=== PATIENT | male | born 1940 | race African-American/Black ===

== ENCOUNTER 2016-05-29 10:43 | Inpatient (IN) ==
[2016-05-29] MEDS ORDERED: TYLENOL PO PRN (12:12)
[2016-05-29] MEDS ORDERED: ZOFRAN IV PRN (12:12)
--- NOTE | 2016-05-29 13:17 | Diag Imaging Result Document ---
PROCEDURE NAME: CHEST-2 VIEWS - 05/29/2016 CHEST X-RAY, 2 VIEWS: COMPARISON: 05/24/2016. FINDINGS: Stable borderline cardiomegaly. No focal infiltrates, pneumothorax, or pleural effusion. IMPRESSION: Borderline heart size. No acute disease or change from prior.
[2016-05-29 14:12] LABS: HEMOGLOBIN 14.4 g/dL (14.0-18.0); MCHC 34.4 g/dL (33-37); MCV 97.2 FL (81-99)
[2016-05-29] MEDS: LASIX IV SCH (14:14)
[2016-05-29] MEDS: LOVENOX SUBQ SCH (14:14)
[2016-05-29 14:20] LABS: HEMATOCRIT 41.8 % (42.0-52.0); MCH 33.5 PG (27-31); MPV 11.2 FL (7.4-10.4); RBC 4.3 XMIL (4.7-6.1)
[2016-05-29 14:51] LABS: AGAP 13; BUN 25 mg/dL (8-22); CALCIUM 9.4 mg/dL (8.8-10.2); CHLORIDE 96 mmol/L (98-107); COSMO 277; POTASSIUM 4.3 mmol/L (3.5-5.1); SODIUM 136 mmol/L (136-145); TCO2 27 mmol/L (25-35)
--- NOTE | 2016-05-29 19:17 | ECHO REPORT ---
ORDER DATE: 05/29/2016 DIAGNOSIS: Congestive heart failure. MEASUREMENTS: Left ventricular end-diastolic diameter 3.7, end-systolic diameter 3.2. posterior wall thickness 1.9, septal thickness 2.3, left atrium 4.2, aortic root 3.0. SUMMARY: 1. Adequate quality acoustic windows. 2. Trileaflet aortic valve is sclerotic but opens adequately on 2-dimensional images. Mitral and tricuspid valves are without structural abnormality with mild to moderate mitral regurgitation and moderate tricuspid regurgitation. Pulmonic valve without structural abnormality. Estimated systolic PA pressure by Doppler is 45 mmHg. The aortic root is normal size. 3. Normal left ventricular chamber size with severe concentric left hypertrophy demonstrated. Estimated left ejection fraction approximately 30% in the setting of global hypokinesis. Left atrium is mildly enlarged. Right atrium is mildly enlarged. Right ventricle is of normal size with grossly preserved right ventricular systolic performance. 4. No pericardial effusion. 5. Appearance of inferior vena cava suggests elevated central venous pressure. CONCLUSIONS: 1. Aortic valve sclerosis without stenosis. 2. Mild to moderate mitral regurgitation. 3. Moderate tricuspid regurgitation with [id number] pulmonary hypertension suggested by Doppler. 4. Severe concentric left hypertrophy with estimated left ejection fraction 30%. 5. Biatrial enlargement. 6. Elevated central venous pressure suggested.
[2016-05-29] MEDS: ASPIRIN EC PO SCH (20:58)
[2016-05-29] MEDS: PRAVACHOL PO SCH (20:59)
[2016-05-29] MEDS ORDERED: RANEXA PO SCH (21:00)
[2016-05-30] MEDS: LASIX IV SCH (01:26)
[2016-05-30 08:06] LABS: AGAP 13; BUN 27 mg/dL (8-22); CALCIUM 8.9 mg/dL (8.8-10.2); CHLORIDE 93 mmol/L (98-107); COSMO 275; POTASSIUM 4.2 mmol/L (3.5-5.1); SODIUM 135 mmol/L (136-145); TCO2 29 mmol/L (25-35)
--- NOTE | 2016-05-30 08:06 | PROGRESS NOTE ---
DATE: 05/30/2016 SUBJECTIVE: Mr. Joe Murphy was admitted to [facility] on 05/29/2016 with acute-on- chronic congestive heart failure secondary to diastolic dysfunction. His most recent echocardiogram in 2015 demonstrated normal LV function with an EF of 50% to 55% with diastolic dysfunction. We placed him on a salt and fluid restricted diet and have aggressively diuresed him with Lasix. This morning, he reports that he is breathing more comfortably. He denies any PND or orthopnea. His O2 saturations have ranged from 94-98% on room air. He put out over 1600 mL of urine. We obtained an echo on admission. The echo from 05/29/2016 demonstrated normal left ventricular size with severe concentric left hypertrophy with an estimated left ejection fraction of 30% in the setting of global hypokinesis. He had preserved right ventricular systolic dysfunction. He also had kwoe-[id number] mitral regurgitation, moderate tricuspid regurgitation and vgaa-ew-[id number] pulmonary hypertension. He has had previous pulmonary function tests which demonstrated mild COPD type changes with significant improvement with inhalers. OBJECTIVE: Vital Signs: He is afebrile. Temperature is pulse 78, BP 109/68. CV: Regular rate and rhythm. Lungs: Faint crackles in the bases with scattered rhonchi. Abdomen: Soft, nontender, with active bowel sounds. Extremities: Trace ankle edema. ASSESSMENT AND PLAN: 1. Qillq-ws-uwptjts congestive heart failure secondary to systolic dysfunction. His echo shows global hypokinesis with an ejection fraction of 30%. I am going to reduce the dosage of Ranexa to 500 mg b.i.d. I will begin Coreg 3.125 mg b.i.d. and add losartan 25 mg daily. As he has had good urine output, I will reduce the Lasix to 40 mg daily. I will consult Dr. Gallegos to see the patient in consultation. Given the severe global hypokinesis with an ejection fraction of 30%, he is certainly at increased risk for 80 arrhythmias and would probably benefit from a defibrillator. He will also probably need to be on Coumadin. 2. Chronic chronic obstructive pulmonary disease. We will continue Dulera 100/5 two puffs b.i.d. and I am going to add DuoNeb nebulizer treatments q.6 hours. 3. Ischemic heart disease. He has chronic stable angina. His initial cardiac enzymes were normal. We will monitor him medically.
[2016-05-30] MEDS: DUONEB (A & A) INH SCH ×4 (08:45→21:37)
[2016-05-30] MEDS ORDERED: TOPROL XL PO SCH (09:00)
[2016-05-30] MEDS: RANEXA PO SCH ×2 (09:41→09:49)
[2016-05-30] MEDS: CYMBALTA PO SCH (09:41)
[2016-05-30] MEDS: ZYLOPRIM PO SCH (09:42)
[2016-05-30] MEDS: VICON-C PO SCH (09:42)
[2016-05-30] MEDS: COZAAR PO SCH (09:46)
[2016-05-30] MEDS: COREG PO SCH ×2 (09:47→21:25)
[2016-05-30] MEDS: LASIX PO SCH (09:51)
--- NOTE | 2016-05-30 11:22 | EKG Report ---
Test Performed on : 05/30/2016 10:35:04 AM Test Reason : CAD Blood Pressure : / mmHG Vent. Rate : 074 BPM Atrial Rate : 074 BPM P-R Int : 218 ms QRS Dur : 148 ms QT Int : 470 ms P-R-T Axes : 061 -77 083 degrees QTc Int : 521 ms Sinus rhythm. with 1st degree AV block. Left axis deviation Left bundle branch block Abnormal ECG When compared with ECG of 24-MAY-2016 02:14, (Unconfirmed) No significant change was found Confirmed by Paulette NEWTON, Dago Pelletier ([id number]) on 05/30/2016 5:19:30 PM
--- NOTE | 2016-05-30 13:12 | CONSULTATION ---
DATE OF CONSULTATION: 05/30/2016 IMPRESSION: 1. Acute on chronic congestive heart failure with echocardiography suggesting systolic heart failure. 2. Chronic obstructive pulmonary disease with exacerbation. 3. Atherosclerotic coronary disease with history of previous coronary angioplasty/stent procedures. Coronary angiography in 2013 reported significant atherosclerosis in distal left anterior descending coronary artery. Patent stent in the left circumflex coronary, and occluded stent in proximal right coronary. Left ventricle ejection fraction at that time 60%. No significant mitral regurgitation. 4. Hypertension. 5. Hyperlipidemia. RECOMMENDATIONS: 1. Diurese. 2. Treat for COPD exacerbation as you are doing. 3. I will review echocardiography and as patient improves will give consider to possible pursuit of re-evaluation with cardiac catheterization and selective coronary angiography. HISTORY: This 75-year-old male with past history of ischemic heart disease, COPD, hypertension, hyperlipidemia was admitted for further evaluation of progressive dyspnea symptoms and cough. Echocardiography was abnormal showing decline in left ventricular systolic function as well as development of mitral regurgitation. Cardiology consult was requested. He relates having some tendency for chronic exertional shortness of breath. However over the last week or so his exertional shortness of breath symptoms have gotten considerably worse and most recently has gotten to the point where and just make it to the bathroom with effort limiting dyspnea. There has been no orthopnea. He has had cough. He also describes feeling weak. There has been no angina. His cough is minimally productive. PAST MEDICAL HISTORY: 1. Atherosclerotic coronary disease as outlined above. 2. Hypertension. 3. Hyperlipidemia. 4. Chronic obstructive pulmonary disease. 5. Obesity. PAST SURGICAL HISTORY: 1. Previous hernia repair. 2. Cholecystectomy. 3. Colon polyp removal. MEDICATIONS PRIOR TO ADMISSION: As listed. SOCIAL HISTORY: He is . He has history of smoking in the past but no longer smokes. He does not use alcohol. FAMILY HISTORY: Negative for premature coronary disease. REVIEW OF SYSTEMS: Pulmonary: Noteworthy for dyspnea and cough. There has been no orthopnea. Gastrointestinal: Negative. Constitutional: Noteworthy for weakness and fatigue. Remainder review of systems negative/noncontributory with 14 total systems reviewed. PHYSICAL EXAMINATION: General: This is a pleasant, older, male, in no distress on room air. Vital Signs: Blood pressure 120/66, heart rate 78 and regular. Oxygen saturation 97% on room air. HEENT: Extraocular muscles appear intact. Mucous membranes are moist. Neck: Supple with normal jugular venous pressures suggested on inspection of neck veins. Chest: Auscultation of the chest reveals bibasilar inspiratory crackles as well as scattered expiratory rhonchi. Cardiac: Reveals a regular rate and rhythm with normal 1st and 2nd heart sound. No murmur or gallop could be appreciated. Abdomen: Soft, nontender. Bowel sounds are normal. Extremities: Without edema. Neurologic: Reveals him to be alert, fully oriented. Speech is fluent. He moves all 4 extremities equally well. Memory is a little bit diminished. Psychiatric: Reveals mood to be appropriate. DIAGNOSTIC STUDIES: ECG not presently on chart. Echocardiography indicates left ventricular ejection fraction of 30%, left ventricular hypertrophy. Mild to moderate mitral regurgitation, and mild to moderate pulmonary hypertension.
[2016-05-30] MEDS: LOVENOX SUBQ SCH (13:51)
[2016-05-30] MEDS: SOLU-MEDROL IV SCH ×2 (13:54→21:25)
--- NOTE | 2016-05-30 17:20 | PROGRESS NOTE ---
DATE: 05/30/2016 SUMMARY: The patient appears to be improved with treatment. He denies shortness of breath. Lying in bed, on room air. There has been no chest pain. He still has some cough. VITAL SIGNS: Blood pressure 120/66, heart rate 78 and regular. DIAGNOSTIC STUDIES: Echocardiography reviewed. Left hypertrophy present. Left ventricular systolic function appears reduced, but ejection fraction may actually be better then 30%. Study is technically difficult. IMPRESSION: 1. Dyspnea, probably multifactorial. 2. Apparent chronic obstructive pulmonary disease exacerbation, component of acute congestive heart failure. 3. Hypertension. 4. Hyperlipidemia. RECOMMENDATIONS: 1. Continue current management with diuresis, monitoring clinical response, as well as treating for COPD exacerbation. 2. MUGA scan has been requested to clarify left ventricular ejection fraction. cc: MD Cristine Marin MD
[2016-05-30] MEDS: DULERA 100 MCG/5 MCG INHALER INH SCH ×2 (19:50→21:37)
[2016-05-30] MEDS: PRAVACHOL PO SCH (21:25)
[2016-05-30] MEDS: ASPIRIN EC PO SCH (21:26)
[2016-05-31] MEDS: DUONEB (A & A) INH SCH ×4 (03:15→20:05)
[2016-05-31] MEDS: SOLU-MEDROL IV SCH ×2 (06:20→12:30)
[2016-05-31] MEDS: DULERA 100 MCG/5 MCG INHALER INH SCH ×2 (09:15→20:05)
[2016-05-31] MEDS: COZAAR PO SCH (09:45)
[2016-05-31] MEDS: LASIX PO SCH (09:45)
[2016-05-31] MEDS: ZYLOPRIM PO SCH (09:45)
[2016-05-31] MEDS: COREG PO SCH ×2 (09:45→23:43)
[2016-05-31] MEDS: VICON-C PO SCH (09:45)
[2016-05-31] MEDS: CYMBALTA PO SCH (09:45)
[2016-05-31] MEDS: LOVENOX SUBQ SCH (12:30)
[2016-05-31] MEDS ORDERED: SOLU-MEDROL ONE (13:12)
--- NOTE | 2016-05-31 14:19 | PROGRESS NOTE ---
DATE: 05/31/2016 CHIEF COMPLAINT: Shortness of breath, chest discomfort. SUBJECTIVE: Mr. Murphy is feeling somewhat better. He is still getting very short of breath when walking to the bathroom and back. He is still coughing. He occasionally gets pains across the precordial area. However, they are very short in duration. OBJECTIVE: Vital signs: His blood pressure is 115/66, temperature 97.8, pulse 84, respirations 18. General: He is awake, alert, oriented, in no distress. HEENT: Unremarkable. Chest: Bilateral rhonchi with some crepitance bilaterally. Cardiac: Heart sounds are regular and rhythmic. No gallop or murmur. Abdomen: Nontender, soft, no masses, no hepatomegaly. Extremities: No edema. Neurological: He moves 4 extremities. EKG from yesterday shows sinus rhythm with nonspecific intraventricular conduction delay type of pattern. IMPRESSION: 1. Patient presented basically with COPD exacerbation. 2. Patient has left ventricular systolic dysfunction, ejection fraction in the 30% range, acute on chronic. 3. He has coronary artery disease, history of previous intervention to the coronary arteries. RECOMMENDATION: At this point in time, we will continue to optimize his COPD. We will discuss the timing of referral for AICD on this patient. The last time a did an echo on him was April of 2015, and it was a good ejection fraction of 66%. It is not clear to me as to why his ejection fraction has dropped so dramatically since then. We may have to do a followup cardiac catheterization at some point. Will follow him along, and thank you again for the opportunity to participate in his evaluation. Best regards. cc: MD Cristine Dhaliwal MD
--- NOTE | 2016-05-31 15:55 | Diag Imaging Result Document ---
PROCEDURE NAME: CHEST-2 VIEWS - 05/31/2016 TWO VIEWS OF THE CHEST: COMPARISON: There are no previous studies available for comparison. FINDINGS: There are portions of the thoracic spine which are ankylosed. There is no evidence of acute cardiac or pulmonary disease. IMPRESSION: No acute abnormality.
[2016-05-31] MEDS: ASPIRIN EC PO SCH (23:43)
[2016-05-31] MEDS: PRAVACHOL PO SCH (23:43)
[2016-06-01] MEDS: SOLU-MEDROL IV SCH ×3 (02:00→18:00)
[2016-06-01] MEDS: DUONEB (A & A) INH SCH ×4 (03:11→20:00)
[2016-06-01 08:02] LABS: AGAP 11; BUN 29 mg/dL (8-22); CALCIUM 9.6 mg/dL (8.8-10.2); CHLORIDE 96 mmol/L (98-107); COSMO 278; HEMATOCRIT 39.8 % (42.0-52.0); HEMOGLOBIN 14.3 g/dL (14.0-18.0); IMM GRAN# 0.02 X1000 (0.0-0.04); IMM GRAN% 0.2 % (0.0-0.5); LYMPH# 0.87 X1000 (1.2-3.4); LYMPH% 7.1 % (20.5-51.1); MANUAL DIFF NEEDED? YES; MCH 33.6 PG (27-31); MCHC 35.9 g/dL (33-37); MCV 93.6 FL (81-99); MONO# 0.22 X1000 (0.11-0.59); MONO% 1.8 % (1.7-9.3); MPV 10.9 FL (7.4-10.4); NEUT% 90.9 % (42.2-75.2); PLT 255 X1000 (130-400); POTASSIUM 4.8 mmol/L (3.5-5.1); RBC 4.25 XMIL (4.7-6.1); SODIUM 135 mmol/L (136-145); TCO2 28 mmol/L (25-35)
[2016-06-01 08:29] LABS: BANDS 2 % (0-1); LYMPHS 8 % (21-51)
[2016-06-01] MEDS: DULERA 100 MCG/5 MCG INHALER INH SCH ×2 (08:50→20:00)
[2016-06-01] MEDS: ZYLOPRIM PO SCH (10:06)
[2016-06-01] MEDS: COREG PO SCH ×2 (10:06→21:53)
[2016-06-01] MEDS: CYMBALTA PO SCH (10:07)
[2016-06-01] MEDS: LASIX PO SCH (10:07)
[2016-06-01] MEDS: VICON-C PO SCH (10:07)
[2016-06-01] MEDS: COZAAR PO SCH (10:07)
--- NOTE | 2016-06-01 12:22 | PROGRESS NOTE ---
DATE: 06/01/2016 SUBJECTIVE: Mr. Murphy was admitted to [facility] with acute COPD exacerbation and acute on chronic congestive heart failure secondary to systolic dysfunction. Clinically, he feels much better. He is breathing much more comfortably. He is maintaining O2 saturations of 97 to 99% on room air. He denies any PND, orthopnea, or increasing peripheral edema. He has a minimal nonproductive cough but denies any pleuritic chest pain. OBJECTIVE: Vital signs: Temperature 97.4 degrees, pulse 90, respirations 14, BP 118/62. CV: Regular rate and rhythm. Lungs: Clear. Abdomen: Soft, nontender, with active bowel sounds. No hepatosplenomegaly. No abdominal bruits. ASSESSMENT AND PLAN: 1. Acute chronic obstructive pulmonary disease exacerbation. We will continue Dulera 100 mg 2 puffs b.i.d., DuoNeb nebulizer treatments, and I will reduce the methylprednisolone to 40 mg IV q.8 hours. 2. Acute on chronic congestive heart failure secondary to systolic dysfunction. He is voiding freely. He put out nearly 4 L of fluid in the past 3 days. We will continue a salt and fluid restricted diet and I will continue aggressive blood pressure control and diuresis with Lasix. 3. Chronic stable angina in the face of known ischemic heart disease. We will continue aggressive risk factor modification as well as Ranexa, pravastatin, and aspirin. cc: Cristine Cervantes MD
--- NOTE | 2016-06-01 15:30 | Diag Imaging Result Document ---
PROCEDURE NAME: CHEST-2 VIEWS - 06/01/2016 CHEST 2 VIEWS: COMPARISON: Compared with 05/31/2016. FINDINGS: Heart size appears the upper range of normal and stable. There are a couple of tiny granulomas from old granulomatous disease at the left upper lobe which are stable. The lungs otherwise appear clear. There is a possible tiny pleural effusion at the right posterior costophrenic sulcus. There is no vascular congestion, or pneumothorax identified. There is thoracic spondylosis or ankylosis noted. IMPRESSION: Possible tiny right pleural effusion. No other evidence of acute disease.
[2016-06-01] MEDS: LOVENOX SUBQ SCH (16:41)
[2016-06-01] MEDS: ASPIRIN EC PO SCH (21:53)
[2016-06-01] MEDS: PRAVACHOL PO SCH (21:53)
[2016-06-02] MEDS: SOLU-MEDROL IV SCH (01:44)
[2016-06-02] MEDS: DUONEB (A & A) INH SCH ×2 (03:30→09:44)
[2016-06-02 08:57] VITALS: BP 136/84
[2016-06-02] MEDS: CYMBALTA PO SCH (09:02)
[2016-06-02] MEDS: ZYLOPRIM PO SCH (09:02)
[2016-06-02] MEDS: VICON-C PO SCH (09:02)
[2016-06-02] MEDS: LASIX PO SCH (09:02)
[2016-06-02] MEDS: COZAAR PO SCH (09:02)
[2016-06-02] MEDS: COREG PO SCH (09:02)
[2016-06-02] MEDS: DULERA 100 MCG/5 MCG INHALER INH SCH (09:44)
--- NOTE | 2016-06-04 21:19 | Diag Imaging Result Document ---
PROCEDURE NAME: MUGA (GATED CARDIAC SCAN) - 05/30/2016 PROCEDURE: MUGA scan interpretation. SUMMARY: The patient underwent MUGA scan utilizing 22.2 millicuries of technetium-99m. Gated cardiac images were obtained. Review of these images demonstrated normal left ventricular chamber size with symmetrical wall motion. Calculated left ejection fraction 52%. CONCLUSIONS: MUGA scan demonstrates calculated left ejection fraction 52%. cc: Primitivo Palm MD
--- NOTE | 2016-06-10 05:36 | DISCHARGE SUMMARY ---
ADMISSION DATE: 05/29/2016 DISCHARGE DATE: 06/02/2016 DISCHARGE DIAGNOSES: 1. Acute on chronic congestive heart failure secondary to systolic dysfunction. 2. Chronic stable angina in the setting of known ischemic heart disease. 3. Mixed hyperlipidemia. 4. Acute chronic obstructive pulmonary disease exacerbation. 5. Gastroesophageal reflux disease. 6. Monoclonal gammopathy of unknown clinical significance. DISCHARGE INSTRUCTIONS: 1. Return to clinic in 1 week to see me, Dr. Manuel Cervantes, in anticipation of a transition of care visit. 2. Activity as tolerated. 3. Healthy heart diet. MEDICATIONS: DuoNeb nebulized 4 times daily, Lasix 40 mg daily and may take a 2nd dose if he gains 2 pounds in 24 hours, losartan 25 mg daily, Dulera 100/5 two puffs b.i.d., Coreg 3.125 mg b.i.d., pravastatin 20 mg at bedtime, aspirin 81 mg daily, allopurinol 300 mg daily, pantoprazole 40 mg daily, duloxetine 60 mg daily, and Ranexa 500 mg b.i.d. PHYSICAL EXAMINATION: General: This is a well-developed, well-nourished, 76-year-old, gentleman in no apparent distress. Vital Signs: Temperature 97.4 degrees, pulse 84, respirations 20. CV: Regular rate and rhythm. Lungs: Clear. Abdomen: Soft, nontender, with active bowel sounds. HOSPITAL COURSE: Mr. Murphy was admitted to [facility] with worsening shortness of breath. We felt that the etiology of his shortness of breath was multifactorial. He does have a longstanding history of COPD. We treated him with supplemental O2 and DuoNeb nebulizer treatments as well as IV Solu-Medrol. Over the course of his hospitalization, we gradually weaned him off the methylprednisolone without regression of his symptoms. He was maintaining O2 saturations of 97-99% on room air. We will continue Dulera 100/5 two puffs b.i.d. and arrange for DuoNeb nebulizer treatments at home. He also was admitted with acute on chronic congestive heart failure secondary to systolic dysfunction. He was placed on a salt and fluid restricted diet, and was aggressively diuresed with Lasix. We diuresed over 4 L of fluid during his hospitalization. His echocardiogram demonstrated an EF of 30%. We titrated upward on the Coreg and added losartan 25 mg daily. At home, he will weigh daily. If he gains 2 pounds in a 24 hour period, he may take a 2nd Lasix that day. We will continue aggressive blood pressure control as well as a salt and fluid restricted diet. He does have chronic stable angina in the face of known ischemic heart disease. The patient has had a previous Myoview GXT which demonstrated no reversible ischemia and chronic scar. We continued aspirin, Ranexa, and aggressive management of his blood pressure and lipids. Having reached maximum hospital benefit, the patient was discharged in stable condition. cc: Crisitne Cervantes MD
== END 2016-06-02 11:48 | disposition home health service (06) ==
LOC: DIRADM 10:43 → 3N 11:59
PROVIDERS: ADMIT Internal Medicine; ATTEND Internal Medicine